=== PATIENT | male | born 1995 | race African-American/Black ===

== ENCOUNTER 2017-08-05 19:40 | Emergency (ER) | payer OTHER ==
[~2017-08-05] VITALS: Ht 170.2 cm; Wt 89.7 kg
[2017-08-05 19:51] VITALS: TEMP 37.3; Ht 170.2 cm; Wt 89.7 kg
[2017-08-05] MEDS ORDERED: VNTHFA/IN INH (20:07)
--- NOTE | 2017-08-05 20:10 | EMERGENCY ROOM VISIT NOTE ---
History Report prepared by Raymundo: Aníbal Trivedi Under the Supervision of: Dr. Ovi Coats M.D. First contact with patient: 19:54 Chief Complaint: ILLNESS Stated Complaint: FATIGUE, SOB, COUGHING,HEARING IN L EAR, STOMACH History of Present Illness The patient is a 21 year old male with a past medical history of asthma who presents to the ED with a cc of constant illness beginning a week ago. Positive for coughing up mild amounts of clear mucous, left ear congestion , abdominal pain, loose stools, and mild nose pressure with a little bit of drainage. Negative for a sore throat, aches, fevers, chills. The patient states that he has been feeling tired and sick constantly for the past week. He denies any recent travel, antibiotic use, swimming, changes in elevation and surgeries. Source of History: patient Onset: a week ago Position: other (global) Quality: other (illness) Timing: constant Associated Symptoms: + cough (coughing up mild amounts of clear mucous), + abdominal pain, No fevers, No chills, No sorethroat Note: he also complains of left ear congestion, loose stools, and mild nose pressure with a little bit of drainage. he denies any body aches Review of Systems See HPI for pertinent positives and negatives. A total of ten systems were reviewed and were otherwise negative. Past Medical & Surgical Medical Problems: (1) Asthma Family History No pertinent family history stated. Social History Smoking Status: Never Smoker Occupation Status: employed, student Current/Historical Medications Scheduled Amoxicillin & Pot Clavulanate (Augmentin 875-125 mg), 1 TAB PO BID Ofloxacin (Otic) (Floxin Otic), 5 DROPS OT BID Scheduled PRN Albuterol Hfa (Ventolin Hfa), 1-2 PUFFS INH Q6H PRN for Shortness of Breath Allergies Coded Allergies: No Known Allergies (Unverified , 08/05/17) Physical Exam Vital Signs Date Time Temp Pulse Resp B/P (MAP) Pulse Ox O2 Delivery O2 Flow Rate FiO2 08/05/17 21:21 82 16 124/89 96 08/05/17 19:51 37.3 79 20 151/86 99 Room Air Physical Exam GENERAL: Awake, alert, well-appearing, NAD HENT: Normocephalic, atraumatic. Bulging erythematous TM in left ear, little big of erythema in left canal. Right TM normal. Uvula is elongated but not swollen, posterior oropharynx clear. EYES: Normal conjunctiva. Sclera non-icteric. NECK: Supple. No nuchal rigidity. FROM. No stridor. RESPIRATORY: CTAB, no rhonchi, wheezing, crackles CARDIAC: RRR, no MRG ABDOMEN: Soft, NTND, BS+ MSK: No chest wall TTP, no LE edema NEURO: GCS 15, CN 2-12 intact, moves all 4s on command SKIN: No rash or jaundice noted. Medical Decision & Procedures Medications Administered Medications (Trade) Dose Ordered Sig/Flip Route Start Time Stop Time Status Last Admin Dose Admin Ibuprofen (Motrin Tab) 800 mg NOW STAT PO 08/05/17 20:11 08/05/17 20:12 DC 08/05/17 20:19 800 MG Acetaminophen (Tylenol Tab) 1,000 mg NOW STAT PO 08/05/17 20:11 08/05/17 20:12 DC 08/05/17 20:20 1,000 MG Albuterol (Ventolin Hfa Inhaler) 2 puffs NOW ONCE INH 08/05/17 20:15 08/05/17 20:16 DC 08/05/17 20:20 2 PUFFS Amoxicillin/ Clavulanate Potassium (Augmentin Tab) 875 mg ONE ONCE PO 08/05/17 20:15 08/05/17 20:16 DC 08/05/17 20:19 875 MG ED Course 1958: The patient was evaluated in room C12. A complete history and physical exam was performed. 2116: I reevaluated the patient. Discussed results and discharge instructions: He verbalized understanding and agreement. The patient is ready for discharge. Medical Decision The patient is a 21 year old male with a past medical history of asthma who presents to the ED with a cc of constant sickness beginning a week ago. Positive for coughing up mild amounts of clear mucous, left ear congestion, abdominal pain, loose stools, and mild nose pressure with a little bit of drainage. Negative for a sore throat, aches, fevers, chills. Differential diagnoses include: URI, sinusitis, eustachian dysfunction, pharyngitis, and otitis externa. Patient was seen and evaluated the bedside. Patient had been complaining of some difficulty with hearing out of his left ear in addition to some URI-type symptoms. Patient denies any alcohol tobacco or drugs. On exam patient did have a bulging erythematous tympanic membrane of the left ear with some mild erythema to the left ear canal. Patient was given first dose of antibiotics as well as some supportive treatment. Patient was afebrile vital signs are stable some additional blood work is completed at this time. Given that he is complained of these symptoms and had a likely source was deemed suitable for outpatient treatment and follow-up. Patient was amenable to this plan. Patient told take for course of antibiotics and in addition to use the otic drops. Patient was told that he may take showers which did not take baths should not swim or submerge his head. Patient was given strict follow-up, discharge, and return precautions. All questions were answered. Patient was deemed suitable for outpatient follow-up at this time. Patient agreed with the plan of care and was safely discharged home. Medication Reconcilliation Current Medication List: was personally reviewed by me Blood Pressure Screening Patient's blood pressure: Elevated blood pressure Blood pressure disposition: Referred to PCP Impression Primary Impression: Otitis externa Additional Impression: Otitis media Scribe Attestation The scribe's documentation has been prepared under my direction and personally reviewed by me in its entirety. I confirm that the note above accurately reflects all work, treatment, procedures, and medical decision making performed by me. Departure Information Dispostion Home / Self-Care Prescriptions Ofloxacin (Otic) (FLOXIN OTIC) 0.3 % Yosvany 5 DROPS OT BID for 7 Days, #1 BTL Prov: Ovi Coats M.D. 08/05/17 Amoxicillin & Pot Clavulanate (Augmentin 875-125 mg) 1 Tab Tab 1 TAB PO BID for 7 Days, #14 TAB Prov: Ovi Coats M.D. 08/05/17 Referrals [facility] Forms HOME CARE DOCUMENTATION FORM, IMPORTANT VISIT INFORMATION, WORK / SCHOOL INSTRUCTIONS Patient Instructions ED Otitis Externa, ED Otitis Media Acute Adult, My [facility] Additional Instructions Please return to the emergency department if you have worsening or recurrent symptoms not amenable to at-home treatment. Please call for a follow-up appointment with her primary care physician. Please take your medications as prescribed. If you have other concerns and/or complaints please feel free to also call your primary care physician's office or return the ED for further evaluation, management, and treatment. Please take your antibiotics as prescribed. Please use your drops. Avoid swimming or bathes. You may take 600 mg Ibuprofen every 6 hours as needed for pain with food for no more than 2 consecutive days. You may take tylenol 1000 mg every 6 hours as needed for pain. You may take motrin and tylenol separately or at the same time. Take your medications as prescribed. If taking an antibiotic consider taking a probiotic and/or eating yogurt, but at the least, please take with food as it can cause upset stomach. You have been examined and treated today on an emergency basis only. This is not a substitute for, or an effort to provide, complete comprehensive medical care. It is impossible to recognize and treat all injuries or illnesses in a single emergency department visit. It is therefore important that you follow up closely with [facility], your PCP, and/or your specialist(s). Call as soon as possible for an appointment. Thank you for your time and consideration. I look forward to speaking with you again soon. Please don't hesitate to call us if you have any questions. Problem Qualifiers Primary Impression: Otitis externa Otitis externa type: unspecified type Chronicity: acute Laterality: left Qualified Codes: H60.502 - Unspecified acute noninfective otitis externa, left ear Additional Impression: Otitis media Otitis media type: suppurative Chronicity: acute Laterality: left Recurrence: not specified as recurrent Spontaneous tympanic membrane rupture: without spontaneous rupture Qualified Codes: H66.002 - Acute suppurative otitis media without spontaneous rupture of ear drum, left ear
[2017-08-05] MEDS ORDERED: ACETAMINOPHEN 500 MG TAB PO STA (20:11)
[2017-08-05] MEDS ORDERED: IBUPROFEN 800 MG TAB PO STA (20:11)
[2017-08-05] MEDS ORDERED: AMOXICILLIN/CLAVULANATE TAB 875 MG TAB PO ONE (20:15)
[2017-08-05] MEDS ORDERED: ALBUTEROL HFA 8 GM INHALER INH ONE (20:15)
[2017-08-05] MEDS ORDERED: AMOX875T PO (21:13)
[2017-08-05] MEDS ORDERED: OFLO0.3D4 OT (21:13)
[2017-08-05 21:21] VITALS: BP 124/89; PULSE 82; O2SAT 96
== END 2017-08-05 21:17 | disposition home or self-care (01) ==
LOC: C.EDB 19:42 → C.EDC 21:17
DX: H60.502 Unspecified acute noninfective otitis externa, left ear (principal); H66.002 Acute suppurative otitis media without spontaneous rupture of ear drum, left ear; J45.909 Unspecified asthma, uncomplicated

== ENCOUNTER 2017-12-01 17:47 | Emergency (ER) | payer OTHER ==
[~2017-12-01] VITALS: Ht 170.2 cm; Wt 88.7 kg
[~2017-12-01 17:47] MED LIST: OFLO0.3D4 OT; VNTHFA/IN INH
[2017-12-01 17:49] VITALS: TEMP 36.7; Ht 170.2 cm; Wt 88.7 kg
[2017-12-01] MEDS ORDERED: PROPARACAINE HCL 0.5% OP SOLN 15 ML BTL ONE (17:54)
[2017-12-01] MEDS ORDERED: SULF800T23 PO (18:11)
[2017-12-01] MEDS ORDERED: CEPH500C2 PO (18:11)
[2017-12-01] MEDS ORDERED: HYDR-5688 PO ×2 (18:49→18:52)
[2017-12-01] MEDS ORDERED: CIPR0.3S OP (18:49)
[2017-12-01 19:37] VITALS: BP 180/40; PULSE 74; O2SAT 99
--- NOTE | 2017-12-02 00:12 | EMERGENCY ROOM VISIT NOTE ---
ED Visit Note First contact with patient: 17:52 Chief Complaint: Left eye pain. History of Present Illness: Mr. Ribera is a 22-year-old black male who ambulates into the ED accompanied by a female friend complaining of left eye pain. Patient reports 2 days ago he was playing basketball and was elbowed in the left eye while attempting to get or rebound. He reports at the time of the injury he had no loss of consciousness and since the injury he has had no signs of head injury. He reports immediately after the injury he had some mild discomfort in the left eye which improved and then started worsening last night. Today he reports he has had tearing and light sensitivity. Currently he is describing his pain as a deep achy sensation. He rates his discomfort 8/10. Pain is nonradiating. His pain worsens with exposure to bright light. He has not identified any alleviating factors related to the pain. He has not taken any medications for pain prior to arrival at the hospital. He continues to have the associated symptoms as noted above and denies headache, other facial pain, flashing lights, halos, decrease overall vision, neck pain, nausea/vomiting. Review of Systems: As noted above in history of present illness. 8 body systems were reviewed and found to be negative as noted above. Past Medical History: Asthma, bronchitis Current Medications: Patient denies. Allergies to Medications: Patient denies. Social History: Patient is currently employed; he feels safe in his home environment; he denies tobacco use. Physical Examination: Vital Signs: Date Time Temp Pulse Resp B/P (MAP) Pulse Ox O2 Delivery O2 Flow Rate FiO2 12/01/17 19:37 74 18 180/40 99 12/01/17 17:49 36.7 90 16 135/86 98 Room Air GENERAL: 22-year-old male in moderate distress due to pain, nontoxic-appearing, afebrile and hemodynamically stable. NEUROLOGICAL: Awake, alert and oriented to person, place and time. Answering questions appropriately and following commands. Normal gait. Good hand eye coordination. SKIN: Warm, dry and pink. No soft tissue or trauma noted. HEENT: Atraumatic and normocephalic. No facial bony deformity, tenderness, swelling or ecchymosis. No orbital erythema or edema. PERRLA. EOMI without nystagmus. Sclera moderately injected with a small lateral subconjunctival hemorrhage in the 9:00 area. Conjunctiva pink with drainage of clear tears. No foreign bodies were noted under his eyelids are embedded in the cornea. The anterior chamber was clear. Slip light examination with staining shows a corneal abrasion at the o'clock position. Intraocular eye pressures were obtained and were 14 on the right and 11.3 on the left. Visual acuity: Right 20 /70 without correction, left 20/70 without correction. ED Course: Patient is assessed as noted above. Patient's medication list was reviewed. Alcaine was used to anesthetize the eyes for examination. Patient was offered pain medication and refused. Patient was educated about today's findings and instructed on his treatment plan ; he verbalized understanding and agreement with this plan. Clinical Impression: Left corneal abrasion. Disposition: Patient discharged home in stable condition accompanied by his girlfriend; prior to departure he was reassessed and subjectively reported he was feeling better and rated his discomfort 3/10. Plan: Patient was placed on a sliding pain scale of ibuprofen, acetaminophen and [place] ; he was given appropriate narcotic precautions and his name was checked in the state database and no red flags were noted. Patient was prescribed Ciloxan ophthalmic drops and instructed on their use. Patient was encouraged to use a cool compress over the eyelids for comfort and mild swelling. Patient was encouraged to avoid contact use until reevaluated. Patient was encouraged to follow-up with Dr. Lock, workforce services representative or return to the emergency department for recheck in 36-48 hours. Patient was encouraged to return the ED sooner for worsening/uncontrolled pain, visual changes, fevers, severe headaches, vomiting or any new/concerning symptoms.
== END 2017-12-01 19:38 | disposition home or self-care (01) ==
LOC: C.EDB 17:48 → C.EDD 19:38
DX: S05.02XA Injury of conjunctiva and corneal abrasion without foreign body, left eye, initial encounter (principal); W51.XXXA Accidental striking against or bumped into by another person, initial encounter; Y93.67 Activity, basketball; Y99.8 Other external cause status; J45.909 Unspecified asthma, uncomplicated